=== PATIENT | female | born 1965 | race Caucasian/White ===

== ENCOUNTER 2020-10-27 11:25 | Outpatient (CLI) | payer OTHER, SELFPAY ==
[2020-10-31 15:53] LABS: Tissue Transglutaminase IgG Ab 1 U/mL (<6)
[2020-11-02 10:58] LABS: Tissue Transglutaminase IgA Ab 1 U/mL (<4)
== END 2020-10-27 11:26 | disposition home or self-care (01) ==
LOC: ANHLAB 11:28
PROVIDERS: PCP Physician Assistant; Visit Provider Nurse Practitioner Family
DX: R10.9 Unspecified abdominal pain (principal); R19.7 Diarrhea, unspecified
CPT/HCPCS: 36415; 83516

== ENCOUNTER → 2020-12-10 00:21 | Outpatient (CLI) | payer OTHER, SELFPAY ==
[2020-12-11 14:52] LABS: SARS-CoV-2 RNA PCR Negative
== END ==
PROVIDERS: PCP Physician Assistant; Visit Provider Internal Medicine Gastroenterology
DX: Z01.812 Encounter for preprocedural laboratory examination (principal); Z20.822 Contact with and (suspected) exposure to COVID-19
CPT/HCPCS: C9803; U0003; U0005

== ENCOUNTER 2020-12-14 00:27 | Day surgery (SDC) | payer OTHER, SELFPAY ==
[2020-12-02 14:20] VITALS: BMI 23.4
[2020-12-14 09:25] VITALS: BP 110/67; PULSE 75; RESP 15; TEMP 37.1; O2SAT 98; BMI 23.1
[2020-12-14] MEDS: LACTATED RINGERS 1,000 ML 150 ML IV CONT (09:28)
--- NOTE | 2020-12-14 09:36 | WPDANESEPPF ---
Anes - Initial Pre Proc Eval Procedure: Operation Date: 12/14/20 10:30 Proposed Procedures p Colonoscopy - Jan Walters MD Date/Time: 12/14/20 09:36 Surgeon: Jan Walters MD Pre Op Diagnosis: diarrhea Patient Data Age: 55 Gender: F Height: 1.7 m Weight: 67 kg Last Vital Signs Temp 37.1 C 12/14/20 09:25 Pulse 75 12/14/20 09:25 Resp 15 12/14/20 09:25 BP 110/67 12/14/20 09:25 Pulse Ox 98 12/14/20 09:25 Allergies Allergy/AdvReac Type Severity Reaction Status Date / Time codeine Allergy Mild Abdominal Verified 12/14/20 09:22 Pain Sulfa (Sulfonamide Allergy Mild rash Verified 12/14/20 09:22 Antibiotics) Home Medications Medication Instructions Recorded Confirmed Type albuterol sulfate 90 mcg/actuation 2 inh INHALATION Q6H PRN 10/24/20 12/14/20 History breath activated powder inhaler cyanocobalamin (vitamin B-12) 1,000 mcg PO DAILY 10/24/20 12/14/20 History 1,000 mcg tablet fluticasone propionate 113 1 inh INHALATION Q12H 10/24/20 12/14/20 History mcg/actuation breath activated pwdr inhal,sensor levothyroxine 100 mcg tablet 100 mcg PO DAILY 10/24/20 12/14/20 History montelukast 10 mg tablet 10 mg PO DAILY 10/24/20 12/14/20 History ergocalciferol (vitamin D2) 1,000 unit PO DAILY 12/02/20 12/14/20 History [Vitamin D2] Patient hx anesthesia problems: none Family hx anesthesia problems: none PMFSH Past Medical History Medical History (Updated 12/13/20 @ 13:04 by Aashish Covington DO) Allergies Asthma Diarrhea Hypothyroidism Surgical History Surgical History History of cholecystectomy Family History Family History Mother Hypertension Breast cancer Disorder of thyroid gland Grandparent Disorder of thyroid gland Hypertension Social History Social History (Reviewed 10/27/20 @ 10:54 by VIDA Shoemaker Smoking status: Former smoker Tobacco type: e-cigarettes/vaping Smoking end date: 01/03/21 Additional smoking assessment comments: PATIENT DOES STILL VAPE Alcohol intake: current Alcohol use details: 2 PER MONTH Substance use: current Substance use type: marijuana Other substance usage details: VAPES THC FOR SLEEP Living arrangements: with family Spiritual care concerns: No Anes - Eval Final PreProcedure Day of Procedure 12/14/20 09:36 Patient weight: normal Heart: regular rate and rhythm Lungs: clear to auscultation and normal air movement Airway: Mallampati scale class II Neurological: alert and oriented Last oral intake: >/= 8 hours ASA classification: III Emergent: no Anesthetic plan: proceed Anesthesia type and monitoring: general GIVS and standard monitoring Informed Consent: The patient's anesthetic plan and its attendant risks and benefits were discussed with the patient/family/POA. Questions were solicited and answers provided to the satisfaction of the patient/family/POA.
--- NOTE | 2020-12-14 09:59 | PM.HPGS ---
History of Present Illness History of Present Illness Consent: Risks, benefits, and alternatives have been discussed and questions answered. Patient agrees to proceed with procedure. Chief complaint: diarrhea Narrative: Brynn Gray is a 55 year old female with post-prandial diarrhea, remote history of cholecystectomy and never had colonoscopy Review of Systems Constitutional: Constitutional: Denies headache(s) and Denies weakness Eyes: Eyes: Denies blurry vision ENT: Reports Normal hearing present, Denies headache(s) and Denies neck pain Cardiovascular: Cardiovascular: Denies chest pain and Denies dyspnea Respiratory: Respiratory: Denies dyspnea Gastrointestinal: Gastrointestinal: Reports no additional gastrointestinal complaints Genitourinary: Genitourinary: Denies dysuria Musculoskeletal: Musculoskeletal: Denies neck pain Integumentary/Breasts: Skin/Breast: Denies dry skin Neurologic: Reports Normal hearing present, Denies headache(s) and Denies weakness Psychiatric: Psychiatric: Denies anxiety Endocrine: Endocrine: Denies change in body appearance Hematologic/Lymphatic: Hematologic/Lymphatic: Denies easy bleeding Allergic/Immunologic: Allergic/Immunologic: Denies urticaria PMFSH Past Medical History Medical History (Updated 12/14/20 @ 10:01 by Jan Walters MD) Allergies Asthma Colon cancer screening Diarrhea Hypothyroidism Surgical History Surgical History History of cholecystectomy Family History Family History Mother Hypertension Breast cancer Disorder of thyroid gland Grandparent Disorder of thyroid gland Hypertension Social History Social History Smoking status: Former smoker Tobacco type: e-cigarettes/vaping Smoking end date: 01/03/21 Additional smoking assessment comments: PATIENT DOES STILL VAPE Alcohol intake: current Alcohol use details: 2 PER MONTH Substance use: current Substance use type: marijuana Other substance usage details: VAPES THC FOR SLEEP Living arrangements: with family Spiritual care concerns: No Meds Home Medications and Allergies Home Medications Medication Instructions Recorded Confirmed Type albuterol sulfate 90 mcg/actuation 2 inh INHALATION Q6H PRN 10/24/20 12/14/20 History breath activated powder inhaler cyanocobalamin (vitamin B-12) 1,000 mcg PO DAILY 10/24/20 12/14/20 History 1,000 mcg tablet fluticasone propionate 113 1 inh INHALATION Q12H 10/24/20 12/14/20 History mcg/actuation breath activated pwdr inhal,sensor levothyroxine 100 mcg tablet 100 mcg PO DAILY 10/24/20 12/14/20 History montelukast 10 mg tablet 10 mg PO DAILY 10/24/20 12/14/20 History ergocalciferol (vitamin D2) 1,000 unit PO DAILY 12/02/20 12/14/20 History [Vitamin D2] Allergies Allergy/AdvReac Type Severity Reaction Status Date / Time codeine Allergy Mild Abdominal Verified 12/14/20 09:22 Pain Sulfa (Sulfonamide Allergy Mild rash Verified 12/14/20 09:22 Antibiotics) Vital Signs Vital Signs - 24 hr 12/14/20 09:25 Temperature 98.7 F Pulse Rate 75 Respiratory Rate 15 Blood Pressure 110/67 Pulse Oximetry 98 Exam Const: General: comfortable and no acute distress HENMT: General nose exam: Normal nares present Eyes: General: appearance normal, both eyes and all related structures Neck: Neck: no JVD Resp: Auscultation: clear to auscultation bilaterally Cardio: Rate: regular rate Rhythm: regular rhythm GI: Inspection: non-distended GI Palp: Yes Soft to palpation Skin: General skin exam: normal color Neuro: General: gait normal Speech: normal speech Extrem: General: normal to inspection Psych: Mental Status: mental status grossly normal Assessment and Plan Assessment and plan (1) Colon c
[2020-12-14 10:21] VITALS: BP 83/49; PULSE 71; RESP 20; O2SAT 100
[2020-12-14 10:31] VITALS: BP 91/53; PULSE 59; RESP 16; O2SAT 100
[2020-12-14 10:41] VITALS: BP 95/63; PULSE 63; RESP 20; O2SAT 100
== END 2020-12-14 10:50 | disposition home or self-care (01) ==
PROVIDERS: PCP Physician Assistant; Visit Provider Internal Medicine Gastroenterology
PROC: 0DJD8ZZ Inspection of Lower Intestinal Tract, Via Natural or Artificial Opening Endoscopic (ICD-10-PCS; CPT 45378; principal; 2020-12-14 10:30)
DX: Z12.11 Encounter for screening for malignant neoplasm of colon (principal); K64.8 Other hemorrhoids; R19.7 Diarrhea, unspecified; J45.909 Unspecified asthma, uncomplicated; E03.9 Hypothyroidism, unspecified; Z79.51 Long term (current) use of inhaled steroids; F17.290 Nicotine dependence, other tobacco product, uncomplicated; F12.90 Cannabis use, unspecified, uncomplicated
CPT/HCPCS: 45380; 88305; J2001; J2704; J7120

== ENCOUNTER 2023-10-29 14:51 | Outpatient (CLI) | payer OTHER, SELFPAY ==
--- NOTE | ~2023-10-29 | XR_ITS ---
EXAMINATION: XR foot RT min 3V DATE: 10/29/2023 15:13 INDICATION: Right foot pain TECHNIQUE: Dorsoplantar, lateral, and 2 oblique views of the right foot were obtained. COMPARISON: None. FINDINGS: Bone alignment is normal. There is subtle oblique lucency in the lateral base of the second proximal phalanx. There is moderate osteoarthritis of the first metatarsophalangeal joint. The soft tissues are unremarkable. IMPRESSION: 1. Subtle oblique lucency in the lateral base of the second proximal phalanx which could reflect nond isplaced fracture. Recommend correlation for tenderness at this site. 2. Moderate osteoarthritis at the first metatarsophalangeal joint. Reviewed, dictated and finalized at location F. IMPRESSION: 1. Subtle oblique lucency in the lateral base of the second proximal phalanx wh ich could reflect nondisplaced fracture. Recommend correlation for tenderness a t this site. 2. Moderate osteoarthritis at the first metatarsophalangeal joint.
--- NOTE | ~2023-10-29 | XR_ITS ---
XR hip RT min 2V 10/29/2023 15:13 Indication: Right hip pain Procedure: 2 views right hip Comparison: No prior studies for comparison. Findings: There is mild osteoarthritis of the right hip. No fracture or traumatic malalignment. Sacra l foramen are symmetric. No soft tissue abnormality. No foreign bodies. Impression: 1: Mild osteoarthritis of the right hip. Reviewed, dictated and finalized at location L. Impression: 1: Mild osteoarthritis of the right hip.
== END 2023-10-29 14:52 | disposition home or self-care (01) ==
PROVIDERS: PCP Physician Assistant; Visit Provider Physician Assistant
DX: M19.071 Primary osteoarthritis, right ankle and foot (principal); M16.11 Unilateral primary osteoarthritis, right hip
CPT/HCPCS: 73502; 73630

== ENCOUNTER 2023-12-06 17:22 | Outpatient (CLI) | payer OTHER, SELFPAY ==
--- NOTE | ~2023-12-06 | XR_ITS ---
EXAMINATION: XR foot RT min 3V DATE: 12/06/2023 17:39 INDICATION: Right foot pain. TECHNIQUE: 4 views of right foot were obtained. COMPARISON: Right foot radiograph 10/29/2023 FINDINGS: Bone alignment is normal. No fracture. There is severe osteoarthritis of first metatarsopha langeal joint. IMPRESSION: 1. Severe osteoarthritis of first metatarsophalangeal joint. Reviewed, dictated and finalized at location E.
== END 2023-12-06 17:23 | disposition home or self-care (01) ==
LOC: ANHIMG 17:23
PROVIDERS: PCP Physician Assistant; Visit Provider Physician Assistant
DX: M79.671 Pain in right foot (principal); M19.071 Primary osteoarthritis, right ankle and foot
CPT/HCPCS: 73630